=== PATIENT | female | born 1980 | race Caucasian/White ===

== ENCOUNTER 2019-01-03 02:33 | Inpatient (IN) | payer BC ==
[2019-01-03 03:46] VITALS: BMI 26.6
[2019-01-03 04:21] LABS: Hemoglobin 12.6 g/dL (12.0-16.0); Mean Corpuscular HGB CONC 33.5 g/dL (32.0-36.0); Mean Corpuscular Volume 92.6 fL (78.0-98.0); Mean Platelet Volume 9.2 fL (7.4-10.4); Platelet Count 170 thou/uL (130-400); RBC Distribution Width 13.2 % (11.5-14.5); Red Blood Cell (RBC) Count 4.08 mill/uL (4.20-5.40); White Blood Cell (WBC) Count 8.2 thou/uL (4.8-10.8)
[2019-01-03 04:57] LABS: Syphilis Antibody Nonreactive (Nonreactive); Syphilis Antibody Index 0.02 S/CO (<1.00 Non-Reactive)
[2019-01-03 05:05] LABS: HBSAg Index 0.19 S/CO (0-0.99); HIV (1/2) Antibody/Antigen Non-Reactive (NonReactive); HIV 1/2 INDEX 0.09 S/CO (<1.00); Hep B Surf Ag Non-Reactive S/CO (NonReactive)
[2019-01-03] MEDS ORDERED: Lidocaine 1% (PF) 30 ML VIAL SC PRN (08:03)
[2019-01-03] MEDS ORDERED: HYDROcodone/Acetaminophen 5/325 mg Tablet PO PRN ×3 (08:03→16:20)
[2019-01-03] MEDS ORDERED: Docusate 100 MG CAP PO PRN (08:03)
[2019-01-03] MEDS ORDERED: Ibuprofen 800 MG TAB PO PRN (08:03)
[2019-01-03] MEDS ORDERED: Promethazine HCl 25 MG/ML VIAL IM PRN ×2 (08:03→12:04)
[2019-01-03] MEDS ORDERED: NS / Oxytocin 40 units/1000ml 1,000 ML IV PRN (08:03)
[2019-01-03] MEDS ORDERED: Ondansetron PF 4 MG/2 ML Vial IVP PRN ×3 (08:03→16:20)
[2019-01-03] MEDS ORDERED: NS w/ Oxytocin 10 units 500 ML IV SCH (08:15)
[2019-01-03] MEDS: Lactated Ringer's 1,000 ML IV SCH ×2 (09:00→10:56)
[2019-01-03] MEDS ORDERED: Butorphanol Tartrate 1 MG/ML VIAL ONE (10:37)
[2019-01-03] MEDS ORDERED: Lidocaine 1.5% w/Epi 1:200K 30 ML VIAL (Epid Use) ONE (11:07)
[2019-01-03] MEDS ORDERED: Fentanyl 4 mcg/Bup 0.1% Cadd 100 ML ONE (11:08)
[2019-01-03] MEDS ORDERED: Naloxone HCl 0.4 mg/ml Vial IVP PRN ×2 (12:04)
[2019-01-03] MEDS ORDERED: Acetaminophen 325 MG TAB PO PRN (12:04)
[2019-01-03] MEDS ORDERED: diphenhydrAMINE 50 MG/ML VIAL IVP PRN (12:04)
[2019-01-03] MEDS ORDERED: Eucerin (Mineral Oil/Petrolatum,White) 30 gm Jar TOP PRN (12:04)
[2019-01-03] MEDS ORDERED: Lactated Ringer's 500 ML IV PRN (12:04)
[2019-01-03] MEDS ORDERED: ePHEDrine/0.9% NaCl/PF SYRINGE 50 mg/10 ml SLOW IVP PRN (12:04)
[2019-01-03] MEDS ORDERED: Communication Order-Pharmacy FS SCH (12:15)
[2019-01-03] MEDS ORDERED: Fentanyl 4 mcg/Bupivacaine 0.1% Cassette 100 ML EPIDURAL SCH (12:15)
[2019-01-03] MEDS ORDERED: Butorphanol Tartrate 1 MG/ML VIAL SLOW IVP PRN (13:27)
[2019-01-03] MEDS ORDERED: Bisacodyl 10 MG SUPP PR PRN (16:20)
[2019-01-03] MEDS ORDERED: Adacel (T-DAP) 0.5 ML SYRINGE IM ONE (16:20)
[2019-01-03] MEDS ORDERED: Lanolin Ointment 7 GM TUBE TOP PRN (16:20)
[2019-01-03] MEDS ORDERED: Benzocaine/Menthol 20-0.5% 60 ML CAN TOP PRN (16:20)
[2019-01-03] MEDS ORDERED: Milk Of Magnesia 30 ML UDCUP PO PRN (16:20)
[2019-01-03] MEDS ORDERED: NS / Oxytocin 40 units/1000ml 1,000 ML IV SCH (16:30)
[2019-01-03] MEDS: Ibuprofen 800 MG TAB PO SCH (20:59)
[2019-01-03] MEDS: Docusate Calcium (SURFAK) 240 MG CAP PO SCH (20:59)
[2019-01-04] MEDS: Ferrous Sulfate 325 MG TAB PO SCH ×3 (01:19→08:30)
[2019-01-04] MEDS: Ibuprofen 800 MG TAB PO SCH ×3 (06:00→22:09)
[2019-01-04] MEDS: Prenatal Vitamin 1 TAB PO SCH (08:26)
[2019-01-04] MEDS: Docusate Calcium (SURFAK) 240 MG CAP PO SCH ×2 (08:26→22:09)
[2019-01-04] MEDS: HYDROcodone/Acetaminophen 5/325 mg Tablet PO PRN ×2 (12:24→19:04)
--- NOTE | 2019-01-04 16:57 | DN ---
DATE OF PROCEDURE: 01/03/2019 PREOPERATIVE DIAGNOSES: 1. A 38-year-old, G1 at 39 weeks and 1 day with premature rupture of membranes at midnight with clear fluid. 2. GBS negative. 3. Desires low intervention. 4. History of polycystic ovary syndrome and endometriosis. 5. Advanced maternal age. POSTOPERATIVE DIAGNOSES: 1. A 38-year-old, G1 at 39 weeks and 1 day with premature rupture of membranes at midnight with clear fluid. 2. GBS negative. 3. Desires low intervention. 4. History of polycystic ovary syndrome and endometriosis. 5. Advanced maternal age. 6. Live born female infant, weighing 7 pounds and 5 ounces with Apgars of 8 and 9 at one and five minutes respectively. ANESTHESIA: Epidural. CLINICAL HISTORY: This patient is a 38-year-old female, G1 at 39 weeks and 1 day, who presented for history of premature rupture of membranes at midnight. She had an uneventful course and was desiring low intervention. She was admitted as she was grossly ruptured and was placed into the low intervention room. She was comfortable initially; however, her contractions started in approximately 4 hours after she ruptured and were regular every 4 to 5 minutes. The patient became increasingly uncomfortable and after serial exams, had not noted any change. She requested an epidural for maternal analgesia. She was transferred to an LDR suite and continued to progress appropriately with Pitocin augmentation. The patient then got to complete cervical dilation and +2 station and began to push. DESCRIPTION OF PROCEDURE: With good maternal effort, she was able to push the vertex down to position and then delivered the head in an FABIO position. Seemed as if initially the patient was slightly asynclitic as she pushed for a half an hour or so without any descent and then rapid descent to . The head was delivered followed by the anterior shoulder then the posterior shoulder, then the remainder of the infant's body. The cord was doubly clamped and cut, and the vigorous infant was placed on top of the abdomen, where she was stimulated and cleansed to be placed [id number]. The cord was doubly clamped and cut, and the placenta was delivered spontaneously intact with the 3-vessel cord. Exploration of the cervix, vagina, and introitus noted a third-degree laceration, which was repaired in the usual fashion with an Allis clamp on the external sphincter with a 4.0 closure on the proximal internal wall first, then superior lateral distal, and then inferior closure. Once the sphincter was intact and reapproximated, the space crown stitches were performed. The hymen was reapproximated and brought back together lengthening the introitus. Then, the skin was closed over with excellent hemostasis. The patient tolerated the procedure well and was able to recovery on labor and delivery with her . Again, the infant was live born female, weighing 7 pounds and 5 ounces with Apgars of 8 and 9 and one and five minutes respectively. All needle, sponge, lap, and instrument counts were correct x2 at the end of the procedure. There were no other issues surrounding this delivery. Job ID: [id number]
[2019-01-05] MEDS: Ibuprofen 800 MG TAB PO SCH ×3 (05:20→22:09)
[2019-01-05] MEDS: Ferrous Sulfate 325 MG TAB PO SCH ×2 (07:18→07:19)
[2019-01-05] MEDS: Prenatal Vitamin 1 TAB PO SCH (08:55)
[2019-01-05] MEDS: Docusate Calcium (SURFAK) 240 MG CAP PO SCH ×2 (08:55→22:09)
[2019-01-05] MEDS ORDERED: Hydrocortisone 1% Cream 30 GM TUBE TOP SCH (21:15)
[2019-01-05] MEDS: Hydrocortisone 1% Cream 30 GM TUBE TOP SCH (22:10)
[2019-01-06] MEDS: Ibuprofen 800 MG TAB PO SCH ×2 (06:37→15:52)
[2019-01-06] MEDS: Ferrous Sulfate 325 MG TAB PO SCH (08:52)
[2019-01-06] MEDS: Prenatal Vitamin 1 TAB PO SCH (09:59)
[2019-01-06] MEDS: Docusate Calcium (SURFAK) 240 MG CAP PO SCH (09:59)
[2019-01-06] MEDS: Hydrocortisone 1% Cream 30 GM TUBE TOP SCH (09:59)
[2019-01-06 16:12] VITALS: TEMP 98.2
[2019-01-06 16:13] VITALS: BP 140/69
== END 2019-01-06 16:29 | disposition home or self-care (01) | DRG 768 ==
LOC: L&D/OP 02:33 → L&D-LIB 04:40 → L&D 11:20 → 3SE 20:25
PROVIDERS: ADMIT Obstetrics & Gynecology; ATTEND Obstetrics & Gynecology
PROC: 10E0XZZ Delivery of Products of Conception, External Approach (ICD-10-PCS; principal; 2019-01-03)
PROC: 0DQR0ZZ Repair Anal Sphincter, Open Approach (ICD-10-PCS; 2019-01-03)
DX: O70.20 Third degree perineal laceration during delivery, unspecified (principal); Z37.0 Single live birth; Z3A.39 39 weeks gestation of pregnancy; O42.92 Full-term premature rupture of membranes, unspecified as to length of time between rupture and onset of labor; Z87.42 Personal history of other diseases of the female genital tract
CPT/HCPCS: 51702; 85027; 86780; 86850; 86900; 86901; 87340; 87389; 99285; J0595; J2001